=== PATIENT | male | born 1945 | race Caucasian/White ===

== ENCOUNTER → 2018-10-14 | Day surgery (SDC) | payer MEDICARE, BC ==
[2018-10-13 09:22] VITALS: BMI 36.2
[~2018-10-14] MED LIST: ALPRAZolam 0.25 MG TAB PO PRN; ALPRAZolam 0.5 MG TAB PO PRN; ASPIRIN 325 MG TAB PO STA; ATORVASTATIN 80 MG TAB PO STA; NITROGLYCERIN SL TABS 0.4 MG TAB SUBLINGUAL PRN; SODIUM CHLORIDE 0.9% 1,000 ML IV ONE; SODIUM CHLORIDE 0.9% 1,000 ML in EMPTY BAG 1 BAG IV ONE
[2018-10-14 12:20] VITALS: BP 141/78; PULSE 67; RESP 16; TEMP 98
== END | disposition home or self-care (01) ==
LOC: CATHCVL 11:01
PROVIDERS: ATTEND Internal Medicine Interventional Cardiology
DX: Z53.9 Procedure and treatment not carried out, unspecified reason (principal)

== ENCOUNTER → 2018-10-17 | Day surgery (SDC) | payer MEDICARE, BC ==
[2018-10-15 11:53] VITALS: BMI 35.7
[~2018-10-17] MED LIST changes: +ASCORBIC ACID 500 MG TAB PO SCH; +CALCIUM CARBONATE PO SCH; +CITALOPRAM HYDROBROMIDE 20 MG TAB PO SCH; +ERGOCALCIFEROL 50,000 UNIT CAP PO SCH; +HEPARIN SODIUM 1,000 UN/ML (10ML VL) IV ONE; +HEPARIN SODIUM 1,000 UN/ML (10ML VL) ONE; +IOPAMIDOL-370 125ML BTL INJ ONE; +LEVOTHYROXINE 125 MCG TAB PO SCH; +LIDOCAINE 1% INJ 10MG/ML (20 ML MDV) ONE; +LIDOCAINE 1% INJ 10MG/ML (20 ML MDV) SQ ONE; +METOPROLOL SUCCINATE (ER) 25 MG TAB.ER.24H PO SCH; +NON-FORMULARY DRUG (Aspirin [Adult Low Dose Aspirin Ec] 81 MG) PO SCH; +NON-FORMULARY DRUG (Gabapentin [Gabapentin] 600 MG) PO SCH; +NON-FORMULARY DRUG (Lovastatin 20 MG) PO SCH; +NON-FORMULARY DRUG (Omeprazole [Prilosec] 20 MG) PO SCH; +PRIMIDONE 25 MG TAB PO SCH; +PRIMIDONE 50 MG TAB PO SCH; +RX INFO: IV CONTRAST WAS GIVEN 1 EACH MISC MISCELLANE PRN; -SODIUM CHLORIDE 0.9% 1,000 ML IV ONE; +SODIUM CHLORIDE 0.9% 1,000 ML IV SCH; +SUCRALFATE 1 GM TAB PO SCH; +VERAPAMIL 2.5 MG/ML 2 ML AMP ONE; +VERAPAMIL SYRINGE (5 MG/10 ML) INTRAARTER ONE; +VITAMIN D3 PO SCH; +[UNRECOGNIZED DRUG - OTHER] PO SCH; +fentaNYL (PF) 50 MCG/ML 2 ML AMP IV ONE; +fentaNYL (PF) 50 MCG/ML 2 ML AMP ONE; +traMADol 50 MG TAB PO PRN
[2018-10-17 07:26] VITALS: PULSE 69; RESP 20; TEMP 98.2
[2018-10-17] MEDS: MIDAZOLAM 2 MG/2 ML VIAL IVP ONE ×2 (08:45→08:56)
--- NOTE | 2018-10-17 09:45 | CC ---
CARDIAC CATHETERIZATION REPORT DATE OF SERVICE: 10/17/2018 PROCEDURE: Left heart catheterization and coronary angiography. PERFORMED BY: Dr. Jase Cotter. Moderate conscious sedation time was 22 minutes. Patient was given a combination of fentanyl and Versed. His oxygen saturation, hemodynamics and EKG were monitored closely. CLINICAL INFORMATION: Mr. 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 PROCEDURE NOTE: Under local anesthesia and strict aseptic precautions, a 6-Andorran introducer was placed in the right radial artery. Using a standard right Noemí catheter, I performed selective coronary angiography of the right coronary artery, but for the left. I had to use a JL-4 catheter. With this, I was able to selectively cannulate the left coronary artery and performed multiple angiograms in various projections. LV pressures were obtained with the right catheter but did not do an LV gram. The sheath was taken out and a TR band applied as per protocol. The saturation of the fingers of the right hand was about 98%. Patient tolerated the procedure well without complication. He received 3000 units of heparin intravenously. CARDIAC CATHETERIZATION FINDINGS: The left end-diastolic pressure was 14 mmHg without any gradient across the aortic valve. CORONARY ANGIOGRAPHY FINDINGS: RIGHT CORONARY ARTERY: A small nondominant, disease-free vessel with minor irregularities. Limited amount of myocardium being supplied by this. This is a fair sized conus branch that comes off proximally. No significant disease in the nondominant RCA. LEFT MAIN CORONARY ARTERY: A very short patent vessel that bifurcates into LAD and circumflex. Almost the LAD and circumflex comes [id number] pretty much, the origins. LEFT ANTERIOR DESCENDING CORONARY ARTERY: Good caliber vessel extends along the anterior wall, gives off septal and diagonal branches, has minor irregularities, no significant disease. LEFT POSTERIOR CIRCUMFLEX CORONARY ARTERY: Technically a dominant vessel, gives off 2 good-sized obtuse marginal branches. Second one is very large and supplies a sizable amount of myocardium. The distal lead bifurcates into PDA and PLV, both of which supply a fair amount of myocardium. The circumflex has minor irregularities, no significant disease. Left ventriculogram was not performed. FINAL IMPRESSION: This patient has fairly normal filling pressures, no significant gradient across the aortic valve. The left dominant system without any significant disease. LAD and RCA as well as circumflex have minor irregularities. RCA is nondominant. RECOMMENDATION: I am recommending continued medical therapy with risk factor modification. SHANITA / BEAU: [id number] /
[2018-10-17 19:13] VITALS: BP 120/68
== END ==
LOC: CATHCVL 06:36
PROVIDERS: ATTEND Internal Medicine Interventional Cardiology
DX: R94.39 Abnormal result of other cardiovascular function study (principal); R06.02 Shortness of breath; R07.89 Other chest pain; E78.5 Hyperlipidemia, unspecified; E78.00 Pure hypercholesterolemia, unspecified; I10 Essential (primary) hypertension; E66.9 Obesity, unspecified; Z68.36 Body mass index [BMI] 36.0-36.9, adult; Z79.890 Hormone replacement therapy; Z79.899 Other long term (current) drug therapy
CPT/HCPCS: 93458; C1769; C1894; J2250; J2001; J3010; J1644; Q9967

== ENCOUNTER → 2021-07-10 | Outpatient (CLI) | payer MEDICARE, BC ==
[2021-07-10 16:03] LABS: African American GFR (CKD) >90 (>60 ml/min/1.73 sqM); Blood Urea Nitrogen 30 mg/dL (9-20); Non-African American GFR(CKD) >90 (>60 ml/min/1.73 sqM)
--- NOTE | 2021-07-11 06:46 | CT ---
EXAMINATION TYPE: CT abdomen pelvis w con DATE OF EXAM: 07/10/2021 COMPARISON: None. HISTORY: acid reflux and abd pain. Diverticulitis and abscess per order. CT DLP: 1716 mGycm, Automated Exposure Control for Dose Reduction was Utilized. CONTRAST: CT scan of the abdomen and pelvis is performed with oral and with IV Contrast, patient injected with 100 mL of Isovue 300. FINDINGS: LUNG BASES: Reticular fibrotic changes in the posterior bases right greater than left. Tiny right ple ural effusion. Adjacent to 0.6 x 1.6 cm right basilar nodule and/or nodular consolidation. Differenti al includes round atelectasis. Prominent calcification at level of the mitral and aortic valves. LIVER/GB: No significant abnormality is appreciated. PANCREAS: No significant abnormality is seen. SPLEEN: No significant abnormality is seen. ADRENALS: No significant abnormality is seen. KIDNEYS: Symmetric cortical medullary uptake and excretion without hydronephrosis seen bilaterally. T here is 3.4 cm simple appearing thin-walled cyst medially in the right kidney midpole level posterior aspect series 3 image 40. Occasional smaller scattered thin-walled cysts throughout the right kidney is present. BOWEL: The oral contrast reaches level of the cecum. No suspicious small or large bowel dilatation. D iverticula on the left and sigmoid colon. No CT evidence for acute diverticulitis. Normal-appearing a ppendix from cecum right lower quadrant. Dilated contrast filled distal esophagus with moderate size hiatal hernia. Moderate size concentric wall thickening at gastroesophageal junction axial image 13. Surgical changes at level of diaphragmatic hiatus. PROSTATE/SEMINAL VESICLES: Prostate gland measures upper limits of normal in size. LYMPH NODES: No greater than 1cm abdominal or pelvic lymph nodes are appreciated. OSSEOUS STRUCTURES: Multilevel disc space narrowing in the thoracolumbar spine. Multilevel vacuum dis c phenomenon. Facet arthropathy in the lower lumbar spine. Moderate axial joint space loss both hips. OTHER: Small fat-containing bilateral inguinal hernias. Moderate calcified plaque of the aorta extend s into branch vessels. IMPRESSION: 1. Distal colonic diverticulosis without CT evidence for acute diverticulitis. 2. Tiny right pleural effusion. Associated posterior right basilar 2.6 x 1.6 cm nodular consolidation possibly round atelectasis versus true nodule. Consider short-term follow-up CT and/or PET CT to fur ther evaluate. 3. Suspect prior Ct fundoplication surgery with recurrent moderate-sized hiatal hernia. There is dilated distal esophagus with possible small stricture or less likely concentric mass at gastroesopha geal junction in the lower thorax. Correlate clinically. Consider endoscopy follow-up to further eval uate.
== END | disposition home or self-care (01) ==
LOC: RADCTMAIN 15:15
PROVIDERS: ATTEND Family Medicine
DX: K57.30 Diverticulosis of large intestine without perforation or abscess without bleeding (principal); J90 Pleural effusion, not elsewhere classified; K44.9 Diaphragmatic hernia without obstruction or gangrene; K22.8 Other specified diseases of esophagus
CPT/HCPCS: 82565; 84520; 74177; 36415; Q9967